=== PATIENT | female | born 2000 | race Caucasian/White ===

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

== ENCOUNTER 2020-10-23 17:09 | Emergency (ER) | payer SELFPAY ==
[2020-10-23] MEDS ORDERED: NAPROSYN500 MG PO (18:09)
== END 2020-10-23 18:20 | disposition home or self-care (01) ==
LOC: ER1 17:09
DX: S97.111A Crushing injury of right great toe, initial encounter (principal); S91.111A Laceration without foreign body of right great toe without damage to nail, initial encounter; W25.XXXA Contact with sharp glass, initial encounter; Y92.69 Other specified industrial and construction area as the place of occurrence of the external cause; Y99.0 Civilian activity done for income or pay
CPT/HCPCS: 73660; 96372; 99283; J1885